=== PATIENT | female | born 1995 | race Caucasian/White ===

== ENCOUNTER 2018-08-28 21:16 | Outpatient (CLI) | payer MEDICAID ==
[~2018-08-28] VITALS: Ht 165.1 cm; Wt 73.6 kg
[2018-08-28 21:34] VITALS: BP 106/70
== END 2018-08-28 22:10 | disposition home or self-care (01) ==
LOC: LDOP 21:16
PROVIDERS: ATTEND Obstetrics & Gynecology
DX: O42.913 Preterm premature rupture of membranes, unspecified as to length of time between rupture and onset of labor, third trimester (principal); Z3A.37 37 weeks gestation of pregnancy
CPT/HCPCS: 59025; 89060; 99201; G0463; Q0114

== ENCOUNTER 2018-09-11 06:08 | Outpatient (CLI) | payer MEDICAID ==
[~2018-09-11] VITALS: Ht 165.1 cm; Wt 74.4 kg
[2018-09-11 06:24] VITALS: BP 113/67
[2018-09-11] MEDS ORDERED: PREN1TAB60 PO (06:43)
[2018-09-11] MEDS ORDERED: ZOLPIDEM 5MG TABLET ONE (09:06)
[2018-09-11] MEDS ORDERED: ZOLPIDEM 5MG TABLET PO PRN (09:30)
[2018-09-11] MEDS ORDERED: ZOLPIDEM 10MG TABLET PO PRN (09:30)
== END 2018-09-11 09:20 | disposition home or self-care (01) ==
LOC: LDOP 06:08
PROVIDERS: ATTEND Obstetrics & Gynecology
DX: O26.893 Other specified pregnancy related conditions, third trimester (principal); R10.9 Unspecified abdominal pain; Z3A.39 39 weeks gestation of pregnancy
CPT/HCPCS: 99211; G0463

== ENCOUNTER 2018-09-11 18:43 | Outpatient (CLI) | payer MEDICAID ==
[~2018-09-11] VITALS: Ht 165.1 cm; Wt 74.5 kg
[~2018-09-11 18:43] MED LIST: PREN1TAB60 PO
[2018-09-11 19:05] VITALS: BP 118/65
[2018-09-11] MEDS ORDERED: ZOLPIDEM 5MG TABLET PO SCH (20:30)
[2018-09-11] MEDS ORDERED: ZOLPIDEM 5MG TABLET ONE (20:36)
== END 2018-09-11 20:40 | disposition home or self-care (01) ==
LOC: LDOP 18:43
PROVIDERS: ATTEND Obstetrics & Gynecology
DX: O26.893 Other specified pregnancy related conditions, third trimester (principal); Z3A.39 39 weeks gestation of pregnancy
CPT/HCPCS: 59025; 99211; G0463

== ENCOUNTER 2018-09-13 05:01 | Inpatient (IN) | payer MEDICAID ==
[~2018-09-13] VITALS: Ht 165.1 cm; Wt 73.0 kg
[2018-09-13 05:18] VITALS: BP 112/74
[2018-09-13] MEDS ORDERED: OXYTOCIN 30U/ 0.9% NaCL 500ML 500 ML IV ONE ×2 (06:52→06:53)
[2018-09-13] MEDS ORDERED: D5%-LACTATED RINGERS 1,000 ML IV SCH ×2 (06:52→06:53)
[2018-09-13] MEDS ORDERED: OXYTOCIN 30U/ 0.9% NaCL 500ML 500 ML IV PRN ×2 (06:52→06:53)
[2018-09-13] MEDS ORDERED: LACTATED RINGERS 1,000 ML IV SCH ×3 (06:52→07:00)
[2018-09-13] MEDS ORDERED: EPHEDRINE 50 MG/ML, 1ML IVPush PRN (07:00)
[2018-09-13] MEDS ORDERED: TERBUTALINE 1 MG/ML, 1ML IVPush PRN (07:00)
[2018-09-13] MEDS ORDERED: FENTANYL PF 100 MCG/2ML IV PRN ×2 (07:00)
[2018-09-13] MEDS ORDERED: METOCLOPRAMIDE 5 MG/ML, 2ML IVPush PRN (07:00)
[2018-09-13] MEDS ORDERED: SODIUM CITRATE/CITRIC ACID 15 ML UDC PO PRN (07:00)
[2018-09-13] MEDS ORDERED: TERBUTALINE 1 MG/ML, 1ML SQ PRN (07:00)
[2018-09-13] MEDS ORDERED: CALCIUM CARBONATE 500 MG TAB.CHEW PO PRN (07:00)
[2018-09-13] MEDS ORDERED: FENTANYL PF 100 MCG/2ML IVPush PRN ×2 (07:00)
[2018-09-13] MEDS ORDERED: FENTANYL/BUPIV./NS/PF 250 ML EPIDCONT SCH (07:00)
[2018-09-13] MEDS ORDERED: LACTATED RINGERS 1,000 ML IVBOLUS PRN (07:00)
[2018-09-13] MEDS ORDERED: ONDANSETRON 2MG/ML, 2ML IVPush PRN (07:00)
[2018-09-13] MEDS ORDERED: BUPIVACAINE 0.25% ONE (07:09)
[2018-09-13 07:23] LABS: MEAN CORPUSCULAR HEMOGLOBIN 33.1 pg (27.0-34.8); MEAN CORPUSCULAR HGB CONC 33.4 g/dL (32.4-35.8); MEAN CORPUSCULAR VOLUME 99.4 fL (80-100); MEAN PLATELET VOLUME 9.4 fL (7.4-10.4); PLATELET COUNT 190 x10^3/uL (130-400); RED BLOOD COUNT 3.68 x10^6/uL (3.82-5.3)
[2018-09-13] MEDS ORDERED: LIDOCAINE/PF 1.5%-EPI 1:200K, 30ML ONE (07:40)
[2018-09-13 08:03] LABS: MD YES
[2018-09-13 08:04] LABS: BAND#(MANUAL) 0.91 x10^3/uL; BANDS%(MANUAL) 5 % (0-7); LYMPH#(MANUAL) 0.91 x10^3/uL (1-3.4); LYMPHS% (MANUAL) 5 % (22-44); MONOS#(MANUAL) 0.36 x10^3/uL (0.3-2.7); MONOS% (MANUAL) 2 % (2-9); SEG#(MANUAL) 15.93 x10^3/uL (1.8-6.8); SEGS% (MANUAL) 88 % (42-75)
[2018-09-13 08:05] LABS: <PLATELET ESTIMATE> ADEQUATE; <PLT MORPHOLOGY> NORMAL PLT MORPH; <RBC MORPHOLOGY> NORMAL
[2018-09-13] MEDS ORDERED: MISOPROSTOL 200 MCG TABLET ONE (08:15)
[2018-09-13] MEDS ORDERED: NEWBORN KIT ONE (08:15)
[2018-09-13] MEDS ORDERED: LIDOCAINE 1%, 20ML ONE (08:15)
[2018-09-13] MEDS ORDERED: OXYTOCIN 30U/ 0.9% NaCL 500ML 500 ML ONE ×2 (08:15→17:45)
[2018-09-13 09:19] LABS: AMPHETAMINE SCREEN, URINE Negative (Negative); BARBITURATE SCREEN, URINE Negative (Negative); BENZODIAZEPINE SCREEN, URINE Negative (Negative); CANNABINOID SCREEN, URINE Negative (Negative); COCAINE SCREEN, URINE Negative (Negative); METHADONE SCREEN, URINE Negative (Negative); OPIATE SCREEN, URINE Negative (Negative)
[2018-09-13] MEDS ORDERED: OXYcodone/APAP 5/325MG TABLET PO PRN (17:30)
[2018-09-13] MEDS ORDERED: MISOPROSTOL 200 MCG TABLET PR PRN (17:30)
[2018-09-13] MEDS ORDERED: ACETAMINOPHEN 325 MG TABLET PO PRN (17:30)
[2018-09-13] MEDS ORDERED: IBUPROFEN 600 MG TABLET ONE (17:45)
[2018-09-13] MEDS: OXYTOCIN 30U/ 0.9% NaCL 500ML 500 ML IV SCH (17:49)
[2018-09-13] MEDS: IBUPROFEN 600 MG TABLET PO PRN (17:49)
[2018-09-13 20:00] VITALS: BP 100/59
[2018-09-14] VITALS: BP 98/61
[2018-09-14 01:51] LABS: MEAN CORPUSCULAR HGB CONC 33.5 g/dL (32.4-35.8); MEAN CORPUSCULAR VOLUME 101.5 fL (80-100); MEAN PLATELET VOLUME 9.5 fL (7.4-10.4); PLATELET COUNT 168 x10^3/uL (130-400); RED BLOOD COUNT 3.42 x10^6/uL (3.82-5.3)
[2018-09-14 02:07] LABS: MD YES
[2018-09-14 02:08] LABS: BAND#(MANUAL) 1.49 x10^3/uL; BANDS%(MANUAL) 6 % (0-7); LYMPH#(MANUAL) 0.74 x10^3/uL (1-3.4); LYMPHS% (MANUAL) 3 % (22-44); MONOS#(MANUAL) 1.24 x10^3/uL (0.3-2.7); MONOS% (MANUAL) 5 % (2-9); SEG#(MANUAL) 21.33 x10^3/uL (1.8-6.8); SEGS% (MANUAL) 86 % (42-75)
[2018-09-14 02:09] LABS: <PLATELET ESTIMATE> ADEQUATE; <PLT MORPHOLOGY> NORMAL PLT MORPH; ANISOCYTOSIS 1+
[2018-09-14] MEDS: OXYTOCIN 30U/ 0.9% NaCL 500ML 500 ML IV SCH (03:19)
[2018-09-14 04:00] VITALS: BP 101/60
[2018-09-14 07:45] VITALS: BP 103/70
[2018-09-14] MEDS: DOCUSATE 100 MG CAPSULE PO PRN ×2 (07:58→22:43)
[2018-09-14] MEDS: PRENATAL VIT/IRON/FA 1 EACH TABLET PO SCH (09:00)
[2018-09-14 12:00] VITALS: BP 111/76
[2018-09-14] MEDS ORDERED: DIPH,PERTUSS(ACELL),TET VAC/PF NC IM-VACC ONE ×2 (15:41→16:00)
[2018-09-14] MEDS: IBUPROFEN 600 MG TABLET PO PRN ×2 (16:03→22:43)
[2018-09-14] MEDS ORDERED: MEASLES,MUMPS&RUBELLA VACC/PF 0.5 ML SQ-VACC ONE ×2 (16:07→16:30)
[2018-09-14 16:32] VITALS: BP 111/75
[2018-09-14 19:30] VITALS: BP 101/68
[2018-09-15 07:58] VITALS: BP 107/73
[2018-09-15] MEDS: PRENATAL VIT/IRON/FA 1 EACH TABLET PO SCH (09:00)
[2018-09-15] MEDS ORDERED: IBUP-1222 PO (09:38)
[2018-09-15] MEDS: DOCUSATE 100 MG CAPSULE PO PRN (12:48)
[2018-09-15] MEDS: IBUPROFEN 600 MG TABLET PO PRN (12:48)
== END 2018-09-15 13:25 | disposition home or self-care (01) | DRG 806 ==
LOC: LDOP 05:01 → LDIP 06:43 → 2NW 19:46
PROVIDERS: ADMIT Obstetrics & Gynecology; ATTEND Obstetrics & Gynecology
PROC: 10E0XZZ Delivery of Products of Conception, External Approach (ICD-10-PCS; principal; 2018-09-13)
PROC: 0UQMXZZ Repair Vulva, External Approach (ICD-10-PCS; 2018-09-13)
PROC: 3E0R3BZ Introduction of Anesthetic Agent into Spinal Canal, Percutaneous Approach (ICD-10-PCS; 2018-09-13)
PROC: 00HU33Z Insertion of Infusion Device into Spinal Canal, Percutaneous Approach (ICD-10-PCS; 2018-09-13)
DX: O69.81X0 Labor and delivery complicated by cord around neck, without compression, not applicable or unspecified (principal); O99.354 Diseases of the nervous system complicating childbirth; Z37.0 Single live birth; O71.82 Other specified trauma to perineum and vulva; Z3A.39 39 weeks gestation of pregnancy; O99.344 Other mental disorders complicating childbirth; F32.9 Major depressive disorder, single episode, unspecified; G43.909 Migraine, unspecified, not intractable, without status migrainosus; Z87.891 Personal history of nicotine dependence
CPT/HCPCS: 36415; J3490; J7121; 80307; 85025; 86850; 86900; 90715; G0378; J2590; J3010; J7120